=== PATIENT | female | born 1980 | race Caucasian/White ===

== ENCOUNTER 2018-03-06 23:45 | Observation (INO) ==
[2018-03-06] MEDS ORDERED: SALINE FLUSH 10ml SYRINGE IVF PRN (23:56)
[2018-03-06] MEDS ORDERED: HYDROMORPHONE 2 MG/ML INJECTION IVP ONE (23:57)
[2018-03-06] MEDS ORDERED: KETOROLAC 30 MG/ML INJECTION IVP ONE (23:57)
--- NOTE | 2018-03-07 00:02 | Emergency Department Report ---
Chest Pain HPI - General Stated Complaint: cp trouble breathing Time Seen by Provider: 03/06/18 23:56 Source: patient, other (ER DrPhilippe ) Mode of arrival: ambulatory Limitations: no limitations - History of Present Illness HPI narrative: Patient is sent from [place] emergency department for evaluation of chest pain that has been going on for several days. Patient had pneumonia 2 months ago , she was treated successfully with antibiotics and steroids and some type of pain medication and eventually got better. Through 4 days ago after entering [facility] for treatment of alcohol and methamphetamine dependency patient began having left upper chest pain, sharp, stabbing, worsening with deep breathing. Patient was seen on 03/04, had normal labs and EKG as well as chest x- ray. Initial chest x-ray was read as possible infiltrates bilaterally, and patient was started on a Z-Rob. Patient has not had any significant improvement. Last night she was seen in the ER again, diagnosed with pleurisy, and started on NSAIDs. She came back, with worsened pain on lab check the patient's d-dimer had gone from the 500s up to greater than 1900. There is a concern with the patient's tachycardia and difficulty breathing that she could have a pulmonary embolism. Patient was sent for CT scan. Prior to transfer patient was given Kenalog 60 mg, Demerol 100 mg and promethazine 50 mg IM. Patient notes that her chest pain is still severe and unchanged from prior meds - Related Data Home Medications Medication Instructions Recorded Confirmed Levetiracetam [Keppra] 375 mg PO DAILY 03/07/18 03/07/18 Levetiracetam [Keppra] 500 mg PO HS 03/07/18 03/07/18 Allergies Allergy/AdvReac Type Severity Reaction Status Date / Time Sulfa (Sulfonamide Allergy Severe Difficulty Verified 03/07/18 00:12 Antibiotics) Breathing prednisone Allergy Intermediate Itching Verified 03/07/18 00:13 COUNT INCLUDES THE [facility] Alcohol and methamphetamine abuse Stable lung masses on the left Seizures Depression/anxiety Surgical History: Hysterectomy - Social History Smoking status: Never smoker Substance use type: former substance user, methamphetamine Alcohol intake frequency: former alcohol drinker Physical Exam - Limitations Limitations: no limitations - General General appearance: alert, in distress (secondary to pain) - Normal Exams: Head:: Normocephalic without trauma Eyes:: Pupils are PERRLA w/ EOMI, No scleral icterus, irritation, or foreign bodies noted ENMT:: No facial trauma, nasal exudates, pharyngeal erythema, or exudates are noted Neck:: Full range of motion, without adenopathy, JVD, bruits or thyromegaly Cardiovascular:: Regular rate and rhythm, without murmur or gallop, Pulses 2+ all extremities, capillary refill, <2 seconds all extremities Abdomen:: Bowel sounds positive, soft, non-tender, non-distended, no hepatosplenomegaly, masses or bruits noted Lymphatic:: No lymphadenopathy, or lymphedema noted Musculoskeletal:: No tenderness, or deformity noted, good range of motion, all extremities Integumentary:: No rashes, hives, or bruising noted, hair and nails, without abnormality Neurological:: Patient is alert, and oriented, cranial nerves, motor/sensory/ cerebellar, exams w/o gross deficits, to observation Psychiatric:: Patient exhibits, appropriate attention, emotion and affect - Chest Chest inspection: Present: normal inspection, symmetric chest wall rise, tenderness (auto left upper chest wall tenderness, patient states that this is over the area where she is having the pain, but is not the same as the internal pain) - Respiratory Respiratory exam: Present: normal lung sounds bilaterally, other (obvious painful inspiration). Absent: respiratory distress, wheezes, stridor, accessory muscle use, prolonged expiratory phase Course Vital Signs Temperature 98.7 F 03/07/18 00:21 Pulse Rate 104 H 03/07/18 00:21 Respiratory Rate 22 03/07/18 00:21 Blood Pressure 101/68 03/07/18 00:21 Pulse Oximetry 96 03/07/18 00:21 Temperature 98.7 F 03/07/18 00:21 Pulse Rate 106 H 03/07/18 00:26 Respiratory Rate 18 03/07/18 00:42 Blood Pressure 109/63 03/07/18 00:26 Pulse Oximetry 98 03/07/18 00:26 Chest Pain - MDM Narrative Medical decision making narrative: Patient given 1 mg Dilaudid, Toradol 30 mg, and 1 L normal saline IV fluid bolus Troponin - n CTA/PE - negative for PE. The patient does have a moderate to large pericardial effusion however, and a persistent left lower lobe infiltrate consistent with mild pneumonia. Pneumonia is currently being treated with antibiotics, and patient will continue those. I discussed the patient with Dr. Silva, we will admit observation to the floor , and plan on echocardiogram in the morning and further treatment as needed. - Lab Data Lab Results 03/06/18 Range/Units 00:32 Troponin I < 0.012 (0-0.12) ng/ml Specimen Hemolysis < 15 (0-25) Disposition Clinical Impression: Pericarditis Qualifiers: Pericarditis type: unspecified type Chronicity: acute Qualified Code(s): I30.9 - Acute pericarditis, unspecified Disposition: 02 [place] [facility] [place] Improved Prescriptions: No Action Levetiracetam [Keppra] 375 mg PO DAILY Levetiracetam [Keppra] 500 mg PO HS - Seen By: physician
[2018-03-07] MEDS ORDERED: IOHEXOL 350mg/ml 75ml INJECTION ONE (00:13)
[2018-03-07] MEDS ORDERED: SALINE FLUSH 10ml SYRINGE ONE (00:13)
--- OUTSIDE RECORDS SUMMARY | 2018-03-07 00:15 | External Medical Summary | Summary of Care ---
:1980 Author Name Patrick Fuentes M.D. Address [address], [place] [id number] Care Team Providers Name Role Phone Nakul Rodriguez M.D. Unavailable Unavailable Patrick Fuentes M.D. Unavailable Unavailable Maureen Antonio Primary Care Provider Unavailable Unavailable Unavailable Unavailable Functional Status Functional Status Health Issues Name Dates Details Functional status health issues are not documented Status: Cognitive Status Health Issues Name Dates Details Cognitive status health issues are not documented Status: Problems Name Dates Details Fever (780.60, R50.9) Status: Active Irritable bowel syndrome (564.1, K58.9) Status: Active Lower back pain (724.2, M54.5) Status: Active Abdominal pain, RLQ (right lower quadrant) (789.03, R10.31) Status: Active Degenerative disc disease, lumbar (722.52, M51.36) Status: Active Low back pain (724.2, M54.5) Status: Active Medications Name Dates Details MiraLax Oral Powder MIX 17 GRAMS IN 8 OUNCES OF WATER AND DRINK TWICE DAILY. Refills: 0 Nakul Rodriguez M.D. Started 20-Oct-2008 ActiveZolpidem Tartrate 10 MG Oral Tablet TAKE 1 TABLET AT BEDTIME NEEDED FOR SLEEP. Quantity: 30 Refills: 0 Patrick Fuentes M.D. Started ActiveCarisoprodol 350 MG Oral Tablet TAKE 1 TABLET BY MOUTH 3 TIMES DAILYMust last 30 days Quantity: 90 Refills: 0 Patrick Fuentes M.D. Started 13-Jul-2012 ActiveHydrocodone-Acetaminophen 10-325 MG Oral Tablet take 1 to 2 tablets every 4-6 hours prn. Max 4 per day.Must last [address] Fuentes Quantity: 120 Refills: 0 Patrick Fuentes M.D. Started 20-Jan-2015 ActiveMeloxicam 7.5 MG Oral Tablet TAKE 1 TABLET TWICE DAILY. Quantity: 60 Refills: 1 Patrick Fuentes M.D. Started Active Allergies and Adverse Reactions Name Dates Details Sulfa Drugs Status: Active Procedures Procedure Dates Details Procedures not documented Immunization Name Dates Details Immunizations not documented Social History Smoking StatusUnknown if ever smoked Vital Signs Date Test Result Details No Known Vitals to report Results Date Description Value Details Results not documented Plan of Care Planned Observations Name Dates Details Planned Goals not documented Goal Instructions Instructions not documented Encounters Appointment; Patrick Fuentes On Encounter Diagnosis: Problem not documented 08:15 Appointment; Giselle Winters On Encounter Diagnosis: Problem not documented 13:00 Appointment; Giselle Winters On 20-Jan-2015 Encounter Diagnosis: Problem not documented 08:30 Appointment; Patrick Fuentes On 14-Oct-2014 Encounter Diagnosis: Problem not documented 10:30 Appointment; Patrick Fuentes On 08-Aug-2014 Encounter Diagnosis: Problem not documented 09:45 Appointment; Patrick Fuentes On 04-Jul-2014 Encounter Diagnosis: Problem not documented 09:30
--- OUTSIDE RECORDS SUMMARY | 2018-03-07 00:15 | External Medical Summary | Summary of Care ---
:1980 Author Name Patrick Fuentes M.D. Address Unavailable Unavailable , Care Team Providers Name Role Phone Nakul Rodriguez M.D. Unavailable Unavailable Giselle Raman Unavailable Unavailable Patrick Fuentes M.D. Unavailable Unavailable [...] (right lower quadrant) (789.03, R10.31) Status: Active Medications Name Dates Details Ortho Tri-Cyclen (28) 0.18/0.215/0.25 MG-35 MCG Oral Tablet TAKE DIRECTED. Refills: 0 Nakul Rodriguez M.D. Started 10-Oct-2008 ActiveCitrucel Oral Powder USE DIRECTED. Refills: 0 Nakul Rodriguez M.D. Started 20-Oct-2008 ActiveMiraLax Oral Powder MIX 17 GRAMS IN 8 OUNCES OF WATER AND DRINK TWICE DAILY. Refills: 0 Nakul Rodriguez M.D. Started 20-Oct-2008 ActiveZolpidem Tartrate 10 MG Oral Tablet TAKE 1 TABLET AT BEDTIME NEEDED FOR SLEEP. Quantity: 30 Refills: 0 Patrick Fuentes M.D. Started ActiveCarisoprodol 350 MG Oral Tablet TAKE 1 TABLET BY MOUTH 3 TIMES DAILY Quantity: 90 Refills: 2 Patrick Fuentes M.D. Started 13-Jul-2012 ActiveOxycodone-Acetaminophen 10-325 MG Oral Tablet Si PO every 6 hrs prn with a max of 4 per day.Script must last 30 days. May fill on or after 11-13-2014. Quantity: 120 Refills: 0 Giselle Winters Started 05-Nov-2014 Active Allergies and Adverse Reactions Name Dates [...] Dates Details Planned Goals not documented Goal Planned Encounters Appointment; Provider: Patrick Fuentes On 20-Jan-2015 08:15 Instructions Instructions not documented Encounters Appointment; Patrick Fuentes On 14-Oct-2014 Encounter Diagnosis: Problem not documented 10:30 Appointment; Patrick Fuentes On 08-Aug-2014 Encounter Diagnosis: Problem not documented 09:45 Appointment; Patrick Fuentes On 04-Jul-2014 Encounter Diagnosis: Problem not documented 09:30 Appointment; Patrick Fuentes On Encounter Diagnosis: Problem not documented 08:45 Appointment; Patrick Fuentes On 25-Jan-2013 Encounter Diagnosis: Problem not documented 09:30 Appointment; Patrick Fuentes On 09-Nov-2012 Encounter Diagnosis: Problem not documented 09:00
--- OUTSIDE RECORDS SUMMARY | 2018-03-07 00:15 | External Medical Summary | Summary of Care ---
:1980 Author Name Patrick Fuentes M.D. Address [address], [place] [id number] Care Team Providers Name Role Phone Nakul [...] (right lower quadrant) (789.03, R10.31) Status: Active Low back pain (724.2, M54.5) Status: Active Degenerative disc disease, lumbar (722.52, M51.36) Status: Active Medications Name Dates Details MiraLax [...] DAILYMust last 30 days Quantity: 90 Refills: 1 Patrick Fuentes M.D. Started 13-Jul-2012 ActiveHydrocodone-Acetaminophen 10-325 MG Oral Tablet take 1 to 2 tablets every 4-6 hours prn. Max 4 per day.Must last [address] Fuentes Quantity: 120 Refills: 0 Patrick Fuentes M.D. Started 28-May-2015 ActiveMeloxicam 7.5 MG Oral Tablet TAKE 1 [...]
--- OUTSIDE RECORDS SUMMARY | 2018-03-07 00:15 | External Medical Summary ---
:1980 Author Organization [facility]. Summary purpose CCDA Sent to [facility] Chief Complaint and Reason for Visit Admit Diagnosis 1 Chest Pain Problem list No authorized problems tracked for continuity of care are available for this visit. Encounters No authorized problems tracked for encounter diagnoses are available for this visit. Medications No medications recorded for this patient visit Allergies, adverse reactions, alerts No allergy information is available for this patient. Immunizations No immunizations recorded for this patient visit Relevant diagnostic tests and/or laboratory data No authorized results are available for this patient visit History of procedures No procedures recorded for this patient visit. Functional status No functional or cognitive status observations are available for this visit. Vital signs No authorized vital signs are available for this visit. Social history No Social History or smoking status observations were recorded for this visit. ( Unknown if ever smoked.) Treatment Plan No treatment plan text is available for this visit. Hospital discharge instructions No discharge instruction text is available for this visit.
--- OUTSIDE RECORDS SUMMARY | 2018-03-07 00:15 | External Medical Summary | Summary of Care ---
:1980 Author Name Patrick Fuentes M.D. Address [address], [place] [id number] Care Team Providers Name Role Phone Nakul [...] 3 TIMES DAILY Quantity: 90 Refills: 2 Giselle Winters P.APhilippe Started 13-Jul-2012 ActiveHydrocodone-Acetaminophen 10-325 MG Oral Tablet take 1 to 2 tablets every 4-6 hours prn. Max 4 per day.Must last [address] Fuentes Quantity: 120 Refills: 0 Patrick Fuentes M.D. Started 20-Mar-2015 Active Allergies and Adverse Reactions Name Dates [...] not documented Goal Planned Encounters Appointment; Provider: Giselle Winters On 13:00 Instructions Instructions not documented Encounters Appointment; Giselle Winters On 20-Jan-2015 Encounter Diagnosis: Problem not documented 08:30 Appointment; Patrick Fuentes On 14-Oct-2014 Encounter Diagnosis: Problem not documented 10:30 Appointment; Patrick Fuentes On 08-Aug-2014 Encounter Diagnosis: Problem not documented 09:45 Appointment; Patrick Fuentes On 04-Jul-2014 Encounter Diagnosis: Problem not documented 09:30 Appointment; Patrick Fuentes On Encounter Diagnosis: Problem not documented 08:45
--- OUTSIDE RECORDS SUMMARY | 2018-03-07 00:15 | External Medical Summary ---
:1980 Author Organization [facility]. Summary purpose CCDA Sent to [facility] Chief Complaint and Reason for Visit Admit Diagnosis 1 Chest/L flank pain Problem list No authorized problems tracked for [...]
--- OUTSIDE RECORDS SUMMARY | 2018-03-07 00:15 | External Medical Summary | Summary of Care ---
:1980 Author Name Giselle Raman Address [address] [facility] Unavailable [place], [place] [phone] Care Team Providers Name Role Phone Nakul [...] DAILY Quantity: 90 Refills: 2 Giselle Winters Started 13-Jul-2012 ActiveHydrocodone-Acetaminophen 10-325 MG Oral Tablet take 1 to 2 tablets every 4-6 hours prn. Max 4 per day.Must last [address] Fuentes Quantity: 120 Refills: 0 Giselle Winters Started 19-Feb-2015 Active Allergies and Adverse Reactions Name Dates [...] Diagnosis: Problem not documented 08:30 Appointment; Patrick Fuentse On 14-Oct-2014 Encounter Diagnosis: Problem not documented 10:30 Appointment; Patrick Fuentes On 08-Aug-2014 Encounter Diagnosis: Problem not documented 09:45 Appointment; Patrick Fuentes On 04-Jul-2014 Encounter Diagnosis: Problem not documented 09:30 Appointment; Patrick Fuentes On Encounter Diagnosis: Problem not documented 08:45
--- OUTSIDE RECORDS SUMMARY | 2018-03-07 00:15 | External Medical Summary | Summary of Care ---
:1980 Author Name Giselle Raman Address [address] [facility] Unavailable [place], [place] [phone] Care Team Providers Name Role Phone Nakul [...] 13-Jul-2012 ActiveHydrocodone-Acetaminophen 10-325 MG Oral Tablet take one or two tablets every 4-6 hours as needed for chronic pain. Max 4/ daymanaged by Dr. Fuentes Quantity: 120 Refills: 0 Giselle Winters Started 20-Jan-2015 Active Allergies and Adverse Reactions Name Dates [...]
--- OUTSIDE RECORDS SUMMARY | 2018-03-07 00:15 | External Medical Summary | Summary of Care ---
:1980 Author Name Giselle Raman Address [address] [facility] Unavailable [place], [place] [phone] Care Team Providers Name Role Phone Nakul [...] M51.36) Status: Active Medications Name Dates Details Ortho [...]
--- OUTSIDE RECORDS SUMMARY | 2018-03-07 00:16 | External Medical Summary | Summary of Care ---
:1980 Author Name Patrick Fuentes M.D. Address [address], [place] [phone] Care Team Providers Name Role Phone Nakul [...] 120 Refills: 0 Patrick Fuentes M.D. Started 26-Aug-2015 ActiveMeloxicam 7.5 MG Oral Tablet TAKE 1 [...] Planned Encounters Appointment; Provider: Patrick Fuentes On 24-Aug-2015 10:30 Instructions Instructions not documented Encounters Appointment; Patrick [...]
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
--- OUTSIDE RECORDS SUMMARY | 2018-03-07 00:16 | External Medical Summary | Summary of Care ---
:1980 Author Name Patrick Fuentes M.D. Address [address] [place], [place] [id number] Care Team Providers Name Role Phone Nakul [...] 120 Refills: 0 Patrick Fuentes M.D. Started 27-Jul-2015 ActiveMeloxicam 7.5 MG Oral Tablet TAKE 1 [...]
--- OUTSIDE RECORDS SUMMARY | 2018-03-07 00:16 | External Medical Summary | Continuity of Care Document ---
:[address] [facility] Allergies Active Description Code Type Severity Reaction Onset Reported/ Identified Relationship Clinical to Patient Status Yes Prednisone 11482 Drug Moderate irritabil 003BS Aller ity gy Yes Sulfonamides 10144 Drug Moderate N/A 16887 Aller gy Yes Sulfa F0010 Drug Unknown BREATHING 01/08/2010 (Sulfonamide 49500 Aller PROBLEMS Antibiotics) gy Yes Sulfa F0010 Drug Unknown BREATHING 01/08/2010 (Sulfonamide 27852 Aller PROBLEMS Antibiotics) gy Yes prednisone F0060 Drug Moderate SKIN 01/14/2015 89283 Aller HURTS gy Yes prednisone F0060 Drug Moderate SKIN 01/14/2015 28378 Aller HURTS gy Yes Sulfa F0010 Drug Severe difficult 07/13/2015 (Sulfonamide 78442 Aller y Antibiotics) gy breathing Yes prednisone F0060 Drug Mild painful 07/13/2015 42332 Aller skin gy Yes Sulfa F0010 Drug Severe difficult 07/13/2015 (Sulfonamide 94675 Aller y Antibiotics) gy breathing Yes prednisone F0060 Drug Mild painful 07/13/2015 79208 Aller skin gy Yes Prednisone 2164 Unknown N/A 02/27/2016 Yes Sulfa 491 Unknown N/A 02/27/2016 (Sulfonamide s) Medications There is no data. Problems Date Dx Coded Attending Type Code Diagnosis Diagnosed By 04/06/2016 Rayshawn MOORE S F41.8 OTHER SPECIFIED ANXIETY DISORDERS 04/06/2016 Rayshawn MOORE P R55 SYNCOPE AND COLLAPSE 03/04/2018 Kleber TRAN, F 786.59 Chest pain, Chris [place] other type 03/05/2018 Kleber TRAN, F 486 Pneumonia Chris [place] 03/06/2018 Kleber TRAN, F 786.59 Atypical chest Chris [place] pain Procedures Code [place] [address] Emergency 03/05/2018 department visit moderate severity 86101 Therapeutic, 03/06/2018 prophylatic or diagnostic injection (specify substance or drug); subcutaneous or intram 31704 Emergency 03/06/2018 department visit moderate severity Results Test Result Range Complete Blood Count - 04/04/17 14:15 Hemoglobin 14.0 g/dL 11.7-15.5 Platelet Count 392 1000/uL 140-400 Red Blood Cell Count 4.40 MIL/uL 3.80-5.10 White Blood Count 10.0 1000/cmm 3.80-10.80 Hematocrit 42.7 % 35.0-45.0 Mean Corpuscular Volume 97.0 fL 80.0-100.0 Mean Corpuscular Hemoglobin 31.8 pg 27.0-33.0 Mean Corpuscular HGB Conc 32.8 g/dL 32.0-36.0 Neutrophil % 81.2 % 50.0-70.0 Lymphocytes % 12.9 % 20.0-44.0 Monocytes % 5.2 % 4.0-13.0 Eosinophil % 0.2 % <=4.0 Basophil % 0.5 % <=3.0 Neutrophils # 8.08 1000/uL 1.90-7.60 Lymphocytes # 1.28 1000/uL 0.80-4.75 Monocytes # 0.52 1000/uL 0.15-1.40 Eosinophil # 0.02 1000/uL 0.00-0.40 Basophil # 0.05 1000/uL 0.00-0.30 Red Cell Distribution Width 13.4 % 11.0-15.0 Mean Platelet Volume 8.5 fL 8.7-11.9 Comp Metabolic Profile - 04/04/17 14:15 Albumin 4.73 g/dL 3.30-4.80 ALT/SGPT 23 U/L 0-55 AST/SGOT 31 U/L 5-34 Calcium Level 9.7 mg/dL 8.4-10.0 Potassium Level 3.7 mmol/L 3.6-4.5 Protein Total 8.3 g/dL 5.7-7.9 Bilirubin, Total 0.4 mg/gL 0.2-1.2 Sodium Level 141 mmol/L 136-145 Chloride Level 107 mmol/L 97-109 Carbon Dioxide Level 20 mEq/L 17-26 Anion Gap 18 8-18 Glucose 91 mg/dL 70-99 Blood Urea Nitrogen 14.1 mg/dL 7.0-18.7 Creatinine 0.77 mg/dL 0.72-1.25 eGFR Non-Black >=61 >60 BUN/Creatinine Ratio 18 7-25 Osmolality, Calculated 292 mOSM/kg 280-300 Globulin 3.57 g/dL 1.0-4.5 Alkaline Phosphatase 85 U/L 40-150 AST/ALT Ratio 1.35 0.10-40.00 Levetiracetam (Keppra) - 04/04/17 14:15 Levetiracetam (Keppra) 32.9 mcg/mL Encounters ACCT No. Visit Discharge Status Pt. Provider Facility Loc./Unit Complaint Date/Time Type [id number] 05/23/2016 05/23/2016 Brian Clark MD IMDeejay.MRI 3 9812 08:08:00 23:59:00 ent [facility] SEIZURES, EVALUATE FOR BRAIN ABNORMA [id number] 08/10/2015 08/10/2015 RACHEL Torres HMG.SWS 8655 10:20:00 23:59:59 tanja TRAN [facility] [id number] 07/21/2015 07/21/2015 ABDIAZZI Torres 1585 06:18:00 15:26:00 tanja TRAN [facility] [place] [id number] 07/13/2015 07/13/2015 ABDIAZIZ Torres PREADMS 1601 11:31:00 23:59:00 tanja TRAN [facility] [place] [id number] 01/30/2015 01/30/2015 Brian Abraham MD.[facility].P 2374 11:12:00 23:59:59 [facility] [id number] 01/14/2015 01/15/2015 Brian Chew MD OBGYN 1152 10:52:00 10:05:00 [facility] [id number] 01/12/2015 01/12/2015 Brian Colindres MD PREADMS 2654 12:20:00 23:59:00 [facility] [id number] 09/13/2013 09/13/2013 Brian Abraham MD IMG.US 3683 09:00:00 23:59:59 ent [facility] [id number] 07/31/2013 07/31/2013 DIS Brian Roland MD IMG.US 7877 14:02:00 23:59:00 ent [facility] [id number] 05/25/2013 05/25/2013 DIS Outpati Brian Lott IMG.US 2116 13:59:00 23:59:00 ent [facility] [id number] 03/06/2018 03/06/2018 DIS Outpati [facility]FC[facility] PFC_M 01 19:11:30 00:22:17 ent Chris TRAN [id number] 04/04/2017 04/04/2017 DIS Ricardo Webber MD [facility].LAB LAB 4632 14:09:00 23:59:00 ent [facility] [id number] 05/05/2016 05/05/2016 DIS Ricardo Francis [facility].IMG.RA INJURY OF 5803 14:51:00 23:59:00 ent [facility] FACE/NECK [facility] [id number] 04/26/2016 04/26/2016 CLS Ricardo Francis [facility].IMG.MR LEFT 9301 10:30:00 23:59:59 ent [facility] SHOULDER [facility] [id number] 04/15/2016 04/15/2016 DIS Ricardo Coffey MD [facility].SLEEP 6398 10:10:00 23:59:00 ent [facility] [id number] 03/24/2016 03/24/2016 Ricardo Mahoney MD [facility].IMG.RA 6779 11:09:00 23:59:00 ent [facility] [id number] 02/23/2016 02/23/2016 DIS Ricardo Aguilar [facility].ED 2415 00:17:00 03:04:00 cy [facility] [id number] 10/05/2015 10/05/2015 ABDIAIZZ Silva [facility].IMG.CT 3560 10:02:00 23:59:00 tanja TRAN [facility] [id number] 07/16/2015 07/16/2015 CLS Lavonne Hunternee [facility].IMG.US VAGINAL 1444 09:15:00 23:59:59 ent MD [facility] [id number] 07/10/2015 07/10/2015 DIS Outpati Marisela Silva [facility].LAB.RF 1451 15:04:00 23:59:00 ent MD [facility] [id number] 07/02/2015 07/02/2015 DIS Outpati Marisela Silva [facility].IMG.US 5149 12:31:00 23:59:00 ent [facility] [id number] 05/30/2015 05/30/2015 DIS Emergen Ricardo Lott [facility].ED 8830 22:01:00 22:50:00 cy [facility] [id number] 02/16/2015 02/16/[address] Arie TRAN [facility].LAB 9785 11:27:00 23:59:00 ent [facility] [id number] 09/26/2014 09/26/2014 DIS Outpati David Atkins [facility].LAB 7331 10:57:00 23:59:00 ent [facility] [id number] 09/22/2014 09/22/2014 DIS Outpati Ricardo Vogt [facility].IMG.CT 4841 09:18:00 23:59:00 ent [facility] [id number] 09/17/2014 09/17/2014 DIS Outpati Ricardo Hernandez [facility].LAB 3827 14:24:00 23:59:00 ent [facility] [id number] 03/05/2018 03/05/2018 DIS Emergen KLEBER [place] [facility] 18:00:00 18:45:00 dima TRAN, [facility] [id number] 03/04/2018 03/04/2018 DIS Emergen JACQUELINE CAICEDO [facility] 20:30:00 22:00:[address] [facility] [id number] 03/06/2018 ACT Documen 01:23:45 t Registr ation [id number] 02/27/2016 ACT Unknown Rayshawn MOORE [place] NSER SEIZURE 15:20:00 [facility]
--- OUTSIDE RECORDS SUMMARY | 2018-03-07 00:16 | External Medical Summary | Continuity of Care Document ---
:1980 Author Organization [facility] Care Team Providers Name Role Phone Rayshawn MOORE Admitting Physician Rayshawn MOORE Attending Physician Hospital Admission Diagnosis No data in the System Social History Element Code Description Smoking Start Date End Date Description Status Code System Smoking Status [id number] Never smoker SNOMED-CT Problems Code Code System Problem Name Start Date End Date Status [id number] SNOMED-CT Seizure Unknown Active Medications RxNorm Medication Dose Route Instructions Indications Start End Status Date Date 596 Alprazolam 0.5 Oral orally 3 times anxiety Active milligram per day as needed. 32832 Bupropion 0 milligram Oral orally every Active day 82459 Sertraline 150 Oral orally every Active milligram day Allergies Code Code Allergy Type Reaction Severity Start End Status System Substance Date Date 8640 RXNorm Prednisone Drug Unknown 02/27/20 Active allergy 16 92150 RXNorm Sulfa Drug Unknown 02/27/20 Active (Sulfonamides allergy 16 ) Results No data in the system Vital Signs Vitals Value Date Respiratory Rate 14 02/27/2016 O2% BldC Oximetry 95 02/27/2016 BP Systolic 141 mmHg 02/27/2016 BP Diastolic 92 mmHg 02/27/2016 Height 62 in 02/27/2016 Weight Measured 59 lbs 02/27/2016 BSA (Body Surface Area) 1.91649 02/27/2016 BMI (Body Mass Index) 10.8 02/27/2016 Plan of Care No data in the system Procedures No data in the system Encounters No data in the system Immunizations No data in the system Functional Status No data in the system Hospital Discharge Instructions No data in the system
--- OUTSIDE RECORDS SUMMARY | 2018-03-07 00:16 | External Medical Summary | Summary of Care ---
:1980 Author Name Giselle Raman Address [address] [facility] Unavailable [place], [place] [id number] Care Team Providers Name Role Phone Nakul [...] Quantity: 120 Refills: 0 Giselle Winters Started 27-Jun-2015 ActiveMeloxicam 7.5 MG Oral Tablet TAKE 1 [...]
[2018-03-07] MEDS ORDERED: NS 1,000 ML IV ONE (00:34)
[2018-03-07] MEDS ORDERED: FentaNYL 100 MCG/2 ML INJECTION IVP ONE (01:21)
[2018-03-07] MEDS ORDERED: ROPINIROLE 0.5 MG TABLET PO SCH ×2 (02:45→09:00)
[2018-03-07] MEDS: SERTRALINE 100 MG TABLET PO SCH ×2 (02:54→09:22)
[2018-03-07] MEDS ORDERED: KETOROLAC 30 MG/ML INJECTION IM SCH (03:00)
[2018-03-07] MEDS: KETOROLAC 30 MG/ML INJECTION IVP SCH ×2 (05:21→08:50)
[2018-03-07] MEDS: HYDROMORPHONE 2 MG/ML INJECTION IVP PRN ×3 (06:50→14:32)
--- NOTE | 2018-03-07 08:03 | CT Scan Report ---
Indication: L chest pain, dyspnea, tachycardia, elevated d-dimer PROCEDURE: CT angio pulm emboli: Encounter: Initial Comparison: None Technique: Axial CT pulmonary angiographic phase images were performed through the chest after the administration of intravenous contrast. Coronal and Sagittal MIP reconstructed images were created and reviewed. Automated Exposure Control and Iterative Reconstruction dose reducing techniques were utilized. Contrast: Omnipaque 350 62 mL Findings: Pulmonary arteries: Exam is diagnostic to the segmental pulmonary arterial level. No filling defects identified to suggest a pulmonary embolus. Other findings: Bilateral lower lobe airspace consolidation, greater on the left with a small left effusion. No pneumothorax. No pulmonary masses. The central airways are patent. No axillary adenopathy. Moderate sized pericardial effusion. The upper abdomen shows no acute findings. Impression: 1. No pulmonary embolus. 2. Moderate pericardial effusion. 3. Lower lobe airspace disease greater on the left could be due to pneumonia or aspiration. There is a preliminary report by [facility]. .
[2018-03-07] MEDS ORDERED: LEVETIRACETAM 250 MG TABLET PO SCH ×2 (09:00→21:00)
--- NOTE | 2018-03-07 09:12 | XRay Report ---
Indication: chest pain PROCEDURE: XR chest 1V: Encounter: Initial Comparison: CT angiogram of the chest from today Findings: Bilateral pleural effusions and lower lobe airspace consolidation is again noted as seen on the chest CT. No pneumothorax. Cardiac silhouette remains enlarged consistent with the pericardial effusion seen on CT. Pulmonary vascularity appears normal. Impression: Pericardial effusion. Basilar airspace disease and pleural effusions. .
--- NOTE | 2018-03-07 11:46 | Cardiology History & Physical ---
History of Present Illness Chief complaint: chest pain HPI: Rosie is a 37 year old female who was sent from [place] ED for evaluation of chest pain that has been going on for several days. Patient had pneumonia 2 months ago, she was treated successfully with antibiotics and steroids and some type of pain medication and eventually got better. Through 4 days ago after entering [facility] for treatment of alcohol and methamphetamine dependency patient began having left upper chest pain, sharp, stabbing, worsening with deep breathing. Patient was seen on 03/04, had normal labs and EKG as well as chest x-ray. Initial chest x-ray was read as possible infiltrates bilaterally, and patient was started on a Z-Rob. Patient has not had any significant improvement. Last night she was seen in the ER again, diagnosed with pleurisy, and started on NSAIDs. She came back, with worsened pain on lab check the patient's d-dimer had gone from the 500s up to greater than 1900. There is a concern with the patient's tachycardia and difficulty breathing that she could have a pulmonary embolism. Patient was sent for CT scan. Prior to transfer patient was given Kenalog 60 mg, Demerol 100 mg and promethazine 50 mg IM. Patient notes that her chest pain is still severe and unchanged from prior meds Review of Systems - Constitutional Constitutional: Present: fatigue. Absent: chills, fever(s) - EENMT Eyes: Absent: change in vision Balance: Absent: vertigo Mouth/Throat: Absent: sore throat - Cardiovascular Cardiovascular: Present: chest pain. Absent: palpitations, syncope, dyspnea on exertion, heart murmur Rhythm: Absent: abnormal rhythm Vascular: Absent: pedal edema - Respiratory Respiratory: Absent: cough, dyspnea, dyspnea on exertion - Gastrointestinal Gastrointestinal: Absent: abdominal pain, diarrhea, nausea, vomiting - Genitourinary Genitourinary: Absent: dysuria - Integumentary/Breasts Integumentary: Absent: rash - Neurological Neurological: Absent: dizziness - Endocrine Endocrine: Absent: palpitations PFSH Patient Stated Medical History Seizures Yes Pneumonia Yes: 2-3 months ago Surgical History: Hysterectomy Family History: Brother - Coronary stent, age 42 - Social History Smoking status: Former smoker Substance use type: former substance user, methamphetamine Alcohol intake frequency: former alcohol drinker Household members: significant other Current occupational status: unemployed Current residence: Apartment/Private Home Medications Home Medications Medication Instructions Recorded Confirmed Type Ibuprofen [Motrin] 600 mg PO Q6H PRN #40 tab 03/07/18 Rx Levetiracetam [Keppra] 375 mg PO DAILY 03/07/18 03/07/18 History Levetiracetam [Keppra] 500 mg PO HS 03/07/18 03/07/18 History Ropinirole HCl [Requip] 0.75 mg PO TWICEDAILY 03/07/18 03/07/18 History Sertraline HCl [Zoloft] 200 mg PO DAILY 03/07/18 03/07/18 History Zolpidem Tartrate [Ambien] 10 mg PO HS 03/07/18 03/07/18 History Allergies Allergy/AdvReac Type Severity Reaction Status Date / Time Sulfa (Sulfonamide Allergy Severe Difficulty Verified 03/07/18 00:12 Antibiotics) Breathing prednisone Allergy Intermediate Itching Verified 03/07/18 00:13 Exam Vital signs: Temperature 98.1 F 03/07/18 07:41 Pulse Rate 109 H 03/07/18 08:23 Respiratory Rate 18 03/07/18 11:33 Blood Pressure 109/66 03/07/18 07:41 Pulse Oximetry 90 03/07/18 07:41 - Constitutional mild distress, well nourished, cooperative - Routine HEENT Exam Head: Present: normocephalic ENT: Present: mucous membranes dry - Routine Neck Exam Absent: JVD, carotid bruit - Routine Chest/Breast/Axilla Exam Chest wall: Present: tenderness - Routine Respiratory Exam Present: CTA bilaterally. Absent: rales, wheezes - Routine Cardiovascular Exam Present: RRR, no murmur - Routine Abdominal Exam Present: soft, non tender - Routine Extremities Exam Present: no edema - Routine Skin Exam Present: intact, dry, warm - Routine Neurological Exam Present: alert, oriented X3 - Routine Psychiatric Exam Present: normal affect, normal thought process Results 03/07/18 08:55 03/07/18 08:56 CBC 03/07/18 Range/Units 08:55 WBC 15.7 H (4.5-11.0) T/MM3 RBC 3.41 L (4.00-5.20) M/MM3 Hgb 10.8 L (12-16) GM/DL Hct 33.3 L (36-46) % Plt Count 305 (130-400) T/MM3 Neut # (Auto) Not performed Lymph # (Auto) Not performed [place] # (Auto) Not performed Eos # (Auto) Not performed Baso # (Auto) Not performed Comprehensive Metabolic Panel 03/07/18 Range/Units 08:56 Sodium 142 (134-144) MEQ/L Potassium 3.8 (3.6-5) MEQ/L Chloride 108 H (98-107) MEQ/L Carbon Dioxide 23 (22-30) MEQ/L BUN 10.0 (7-17) MG/DL Creatinine 0.5 L (0.7-1.2) mg/dL Glucose 138 H (65-110) MG/DL Calcium 8.9 (8.4-10.2) MG/DL Intake and Output 03/06/18 03/07/18 03/07/18 22:59 06:59 14:59 Intake Total 1240 / 1240 120 / 120 Balance 1240 / 1240 120 / 120 Intake: IV 1000 / 1000 Ns 1,000 ml @ 999.9 mls/hr IV . 1000 / 1000 Q1H ONE Rx#:[id number] Oral 240 / 240 120 / 120 - Imaging and Cardiology Imaging & Cardiology Narrative: Date of Exam: 03/07/18 Ordering Provider: Billie Sarkar APRN Type of Exam(s): XR chest 1V Reason for Exam(s): chest pain Indication: chest pain PROCEDURE: XR chest 1V: Encounter: Initial Comparison: CT angiogram of the chest from today Findings: Bilateral pleural effusions and lower lobe airspace consolidation is again noted as seen on the chest CT. No pneumothorax. Cardiac silhouette remains enlarged consistent with the pericardial effusion seen on CT. Pulmonary vascularity appears normal. Impression: Pericardial effusion. Basilar airspace disease and pleural effusions. . 03/07/18 11:40 Date of Exam: 03/07/18 Ordering Provider: Car Pollack MD Type of Exam(s): CT angio pulm emboli Reason for Exam(s): L chest pain, dyspnea, tachycardia, elevated d-dimer Indication: L chest pain, dyspnea, tachycardia, elevated d-dimer PROCEDURE: CT angio pulm emboli: Encounter: Initial Comparison: None Technique: Axial CT pulmonary angiographic phase images were performed through the chest after the administration of intravenous contrast. Coronal and Sagittal MIP reconstructed images were created and reviewed. Automated Exposure Control and Iterative Reconstruction dose reducing techniques were utilized. Contrast: Omnipaque 350 62 mL Findings: Pulmonary arteries: Exam is diagnostic to the segmental pulmonary arterial level. No filling defects identified to suggest a pulmonary embolus. Other findings: Bilateral lower lobe airspace consolidation, greater on the left with a small left effusion. No pneumothorax. No pulmonary masses. The central airways are patent. No axillary adenopathy. Moderate sized pericardial effusion. The upper abdomen shows no acute findings. Impression: 1. No pulmonary embolus. 2. Moderate pericardial effusion. 3. Lower lobe airspace disease greater on the left could be due to pneumonia or aspiration. There is a preliminary report by [facility]. 03/07/18 11:46 03/08/18 11:31 Patient: Rosie Gonzales MR#: [id number] : 1980 Age/Sex: 37 / F ADM Date: 03/07/18 Loc: [facility] 137-P DIS Date: 03/07/18 = = = = = = = = = = = = = = = = = = = = = = = = = = = = = = = = = = = = = = = = = = = = = = = = = = = = = = = = = = = Date of Exam: 03/07/18 Type of Exam(s): US echo doppler complete DATE OF PROCEDURE March 07, 2018 This is a two-dimensional echo with spectral Doppler, color-flow and M-mode. It was obtained in a patient with chest pain. Left atrial dimension is normal. Left ventricular end-diastolic dimension is normal. Left ventricle wall thickness is normal. LV systolic function is normal with ejection fraction of 65%. Right atrium is normal. Right ventricle is normal. Aortic root dimension is normal. Mitral valve is morphologically normal. Aortic valve appears to be normal. Tricuspid valve shows mild tricuspid regurgitation with normal estimated pulmonary artery systolic pressure of 31. Pulmonary valve shows no pulmonary insufficiency. There is small to moderate pericardial effusion with no echocardiographic evidence of tamponade.. Pleural effusion is present. IMPRESSION 1. Normal LV systolic function with ejection fraction of 65%. 2. Mild tricuspid regurgitation with normal estimated pulmonary artery systolic pressure of 31. 3. Small to moderate pericardial effusion with no echocardiographic evidence of tamponade. 4. Pleural effusion present. EKG interpretations - EKG EKG results cardiology: sinus rhythm - Blocks, axis, hypertrophy, ST abn Repolarization changes or abnormalities: nonspecific abnormality, ST segment, and/or T wave Hospital Course This is a general summary of the patient's hospital course. For more details refer to the complete medical record. Time spent with patient: 25 - 35 minutes Resuscitation Status: Full Code Assessment and Plan - Attestation Attestation Narrative: 03/15/18 13:29 Recommendation After examining the patient I agree with the above assessment. I am involved in the formulation of the patient's plan of care. - Assessment and Plan (1) Pericarditis Status: Acute Chest pain, worse with deep breaths or laying down - EKG: SR with NS STT changes - Troponin negative - 2D echo: Normal LV systolic function with ejection fraction of 65%, Mild tricuspid regurgitation with normal estimated pulmonary artery systolic pressure of 31, Small to moderate pericardial effusion with no echocardiographic evidence of tamponade, Pleural effusion present. - Ibuprofen 600mg Q6H for 10 days - Follow up in [address] Amos for repeat echo (2) CAP (community acquired pneumonia) Status: Acute Continue previously prescribed Azithromycin (3) Seizure disorder Status: Chronic Continue Keppra
[2018-03-07] MEDS ORDERED: IBUPROFEN 600 MG TABLET PO PRN (15:00)
[2018-03-07 15:16] VITALS: BP 123/73; PULSE 108; RESP 16; TEMP 96.3; O2SAT 93
--- NOTE | 2018-03-07 16:37 | Echocardiogram ---
DATE OF PROCEDURE March 07, 2018 This is a two-dimensional echo with spectral Doppler, color-flow and M-mode. It was obtained in a patient with chest pain. Left atrial dimension is normal. Left ventricular end-diastolic dimension is normal. Left ventricle wall thickness is normal. LV systolic function is normal with ejection fraction of 65%. Right atrium is normal. Right ventricle is normal. Aortic root dimension is normal. Mitral valve is morphologically normal. Aortic valve appears to be normal. Tricuspid valve shows mild tricuspid regurgitation with normal estimated pulmonary artery systolic pressure of 31. Pulmonary valve shows no pulmonary insufficiency. There is small to moderate pericardial effusion with no echocardiographic evidence of tamponade.. Pleural effusion is present. IMPRESSION 1. Normal LV systolic function with ejection fraction of 65%. 2. Mild tricuspid regurgitation with normal estimated pulmonary artery systolic pressure of 31. 3. Small to moderate pericardial effusion with no echocardiographic evidence of tamponade. 4. Pleural effusion present. MTDD
[2018-03-07] MEDS ORDERED: ZOLPIDEM 10 MG TABLET PO SCH (21:00)
--- NOTE | 2018-03-08 11:40 | Discharge Summary ---
<Billie Sarkar - Last Filed: 03/08/18 11:40> Discharge Information Date of admission: 03/07/18 01:16 Anticipated date of discharge: 03/07/18 Attending Physician: Leo Amos MD Consults: 03/07/18 09:50 Case Management Consult [CONS] Routine Reason For Exam: SOCIAL SERVICE CONSULT FOR DRUG AND ALCOHOL ABUSE. - Discharge Diagnosis (1) Pericarditis Status: Acute (2) CAP (community acquired pneumonia) Status: Acute (3) Seizure disorder Status: Chronic Pericarditis, Pneumonia, Seizure disorder - Laboratory Labs: 03/07/18 08:55 03/07/18 08:56 History of Present Illness HPI: Rosie is a 37 year old female who was sent from [place] ED for evaluation of chest pain that has been going on for several days. Patient had pneumonia 2 months ago, she was treated successfully with antibiotics and steroids and some type of pain medication and eventually got better. Through 4 days ago after entering [facility] for treatment of alcohol and methamphetamine dependency patient began having left upper chest pain, sharp, stabbing, worsening with deep breathing. Patient was seen on 03/04, had normal labs and EKG as well as chest x-ray. Initial chest x-ray was read as possible infiltrates bilaterally, and patient was started on a Z-Rob. Patient has not had any significant improvement. Last night she was seen in the ER again, diagnosed with pleurisy, and started on NSAIDs. She came back, with worsened pain on lab check the patient's d-dimer had gone from the 500s up to greater than 1900. There is a concern with the patient's tachycardia and difficulty breathing that she could have a pulmonary embolism. Patient was sent for CT scan. Prior to transfer patient was given Kenalog 60 mg, Demerol 100 mg and promethazine 50 mg IM. Patient notes that her chest pain is still severe and unchanged from prior [facility] Hospital Course This is a general summary of the patient's hospital course. For more details refer to the complete medical record. Time spent with patient: less than 15 minutes Resuscitation Status: Full Code Exam Vital signs: Temperature 96.3 F L 03/07/18 15:00 Pulse Rate 108 H 03/07/18 15:00 Respiratory Rate 16 03/07/18 15:00 Blood Pressure 123/73 03/07/18 15:00 Pulse Oximetry 93 03/07/18 15:00 - Constitutional mild distress, well nourished, cooperative - Routine HEENT Exam Head: Present: normocephalic ENT: Present: mucous membranes moist - Routine Neck Exam Absent: JVD, carotid bruit - Routine Chest/Breast/Axilla Exam Chest wall: Present: tenderness - Routine Respiratory Exam Present: CTA bilaterally. Absent: rales, wheezes - Routine Cardiovascular Exam Present: RRR, murmur - Routine Abdominal Exam Present: soft, non tender - Routine Extremities Exam Present: no edema - Routine Skin Exam Present: intact, dry, warm - Routine Neurological Exam Present: alert, oriented X3 - Routine Psychiatric Exam Present: normal affect, normal thought process Results 03/07/18 08:55 03/07/18 08:56 - Imaging and Cardiology Imaging & Cardiology Narrative: Patient: Rosie Gonzales MR#: [id number] : 1980 Age/Sex: 37 / F ADM Date: 03/07/18 Loc: MED 137-P DIS Date: 03/07/18 = = = = = = = = = = = = = = = = = = = = = = = = = = = = = = = = = = = = = = = = = = = = = = = = = = = = = = = = = = = Date of Exam: 03/07/18 Type of Exam(s): US echo doppler complete DATE OF PROCEDURE March 07, 2018 This is a two-dimensional echo with spectral Doppler, color-flow and M-mode. It was obtained in a patient with chest pain. Left atrial dimension is normal. Left ventricular end-diastolic dimension is normal. Left ventricle wall thickness is normal. LV systolic function is normal with ejection fraction of 65%. Right atrium is normal. Right ventricle is normal. Aortic root dimension is normal. Mitral valve is morphologically normal. Aortic valve appears to be normal. Tricuspid valve shows mild tricuspid regurgitation with normal estimated pulmonary artery systolic pressure of 31. Pulmonary valve shows no pulmonary insufficiency. There is small to moderate pericardial effusion with no echocardiographic evidence of tamponade.. Pleural effusion is present. IMPRESSION 1. Normal LV systolic function with ejection fraction of 65%. 2. Mild tricuspid regurgitation with normal estimated pulmonary artery systolic pressure of 31. 3. Small to moderate pericardial effusion with no echocardiographic evidence of tamponade. 4. Pleural effusion present. 03/08/18 11:38 03/08/18 11:38 Date of Exam: 03/07/18 Ordering Provider: Billie Sarkar APRN Type of Exam(s): XR chest 1V Reason for Exam(s): chest pain Indication: chest pain PROCEDURE: XR chest 1V: Encounter: Initial Comparison: CT angiogram of the chest from today Findings: Bilateral pleural effusions and lower lobe airspace consolidation is again noted as seen on the chest CT. No pneumothorax. Cardiac silhouette remains enlarged consistent with the pericardial effusion seen on CT. Pulmonary vascularity appears normal. Impression: Pericardial effusion. Basilar airspace disease and pleural effusions. . 03/08/18 11:39 Date of Exam: 03/07/18 Ordering Provider: Car Pollack MD Type of Exam(s): CT angio pulm emboli Reason for Exam(s): L chest pain, dyspnea, tachycardia, elevated d-dimer Indication: L chest pain, dyspnea, tachycardia, elevated d-dimer PROCEDURE: CT angio pulm emboli: Encounter: Initial Comparison: None Technique: Axial CT pulmonary angiographic phase images were performed through the chest after the administration of intravenous contrast. Coronal and Sagittal MIP reconstructed images were created and reviewed. Automated Exposure Control and Iterative Reconstruction dose reducing techniques were utilized. Contrast: Omnipaque 350 62 mL Findings: Pulmonary arteries: Exam is diagnostic to the segmental pulmonary arterial level. No filling defects identified to suggest a pulmonary embolus. Other findings: Bilateral lower lobe airspace consolidation, greater on the left with a small left effusion. No pneumothorax. No pulmonary masses. The central airways are patent. No axillary adenopathy. Moderate sized pericardial effusion. The upper abdomen shows no acute findings. Impression: 1. No pulmonary embolus. 2. Moderate pericardial effusion. 3. Lower lobe airspace disease greater on the left could be due to pneumonia or aspiration. There is a preliminary report by virtual radiologic. . - EKG Interpretation EKG: sinus rhythm EKG shows: bradycardia Discharge Plan - Med Rec/Dispo Referrals/Follow Up: Leo Amos MD [Physician] - 03/22/18 2:00 pm Ish Instructions: Acute Pericarditis (DC) Prescriptions: New Ibuprofen [Motrin] 600 mg PO Q6H PRN #40 tab PRN Reason: Pain Continue Levetiracetam [Keppra] 375 mg PO DAILY Levetiracetam [Keppra] 500 mg PO HS Sertraline HCl [Zoloft] 200 mg PO DAILY Ropinirole HCl [Requip] 0.75 mg PO TWICEDAILY Zolpidem Tartrate [Ambien] 10 mg PO HS - Disposition 01 Discharged Home, Self-Care - Dismissal Complete Discharge Instructions are:: Complete <Leo Amos - Last Filed: 03/15/18 13:29> Discharge Information Date of admission: 03/07/18 01:16 Attending Physician: Leo Amos MD Consults: 03/07/18 09:50 Case Management Consult [CONS] Routine Reason For Exam: SOCIAL SERVICE CONSULT FOR DRUG AND ALCOHOL ABUSE. - Discharge Diagnosis (1) Pericarditis Status: Acute (2) CAP (community acquired pneumonia) Status: Acute (3) Seizure disorder Status: Chronic - Laboratory Labs: 03/07/18 08:55 03/07/18 08:56 Hospital Course This is a general summary of the patient's hospital course. For more details refer to the complete medical record. Exam Vital signs: Temperature 96.3 F L 03/07/18 15:00 Pulse Rate 108 H 03/07/18 15:00 Respiratory Rate 16 03/07/18 15:00 Blood Pressure 123/73 03/07/18 15:00 Pulse Oximetry 93 03/07/18 15:00 Results 03/07/18 08:55 03/07/18 08:56 Attestation Narriative - Attestation Attestation Narrative: 03/15/18 13:29 Recommendation After examining the patient I agree with the above assessment. I am involved in the formulation of the patient's plan of care.
== END 2018-03-07 16:15 | disposition home or self-care (01) ==
LOC: EDHOLD 23:45 → ED 23:45 → MED 03-07 02:05
PROVIDERS: ADMIT Internal Medicine Cardiovascular Disease; ATTEND Internal Medicine Cardiovascular Disease